=== PATIENT | male | born 1955 | race Caucasian/White ===

== ENCOUNTER 2023-10-15 08:24 | Outpatient (CLI) | payer MEDICARE, OTHER | END 2023-10-15 08:25 | disposition home or self-care (01) | LOC: CSHULT 08:24 | PROVIDERS: ATTEND Family Medicine | DX: Z00.00 Encounter for general adult medical examination without abnormal findings (principal); Z13.6 Encounter for screening for cardiovascular disorders | CPT/HCPCS: 71271; 76706 ==

== ENCOUNTER 2023-10-20 11:57 | Emergency (ER) | payer MEDICARE, OTHER ==
[2023-10-20] MEDS ORDERED: Cyclobenzaprine 10 MG TAB ONE (13:59)
[2023-10-20] MEDS ORDERED: Ketorolac Tromethamine 30 MG/ML VIAL ONE (13:59)
[2023-10-20] MEDS ORDERED: HYDROcodone/Acetaminophen 5/325 mg Tablet ONE (13:59)
== END 2023-10-20 14:02 | disposition home or self-care (01) ==
LOC: CSHERS 11:57
DX: S83.91XA Sprain of unspecified site of right knee, initial encounter (principal); X58.XXXA Exposure to other specified factors, initial encounter
CPT/HCPCS: 96372; J1885

== ENCOUNTER 2023-11-23 08:04 | Outpatient (CLI) | payer MEDICARE, OTHER | END 2023-11-23 08:05 | disposition home or self-care (01) | LOC: CSHMRI 08:04 | PROVIDERS: ATTEND Orthopaedic Surgery | DX: M87.9 Osteonecrosis, unspecified (principal); R93.6 Abnormal findings on diagnostic imaging of limbs | CPT/HCPCS: 72195 ==

== ENCOUNTER 2024-10-15 07:22 | Outpatient (CLI) | payer MEDICARE, OTHER | END 2024-10-15 07:23 | disposition home or self-care (01) | LOC: CSHCT 07:22 | PROVIDERS: ATTEND Family Medicine | DX: Z12.2 Encounter for screening for malignant neoplasm of respiratory organs (principal); Z87.891 Personal history of nicotine dependence; R91.1 Solitary pulmonary nodule | CPT/HCPCS: 71271 ==

== ENCOUNTER 2025-06-15 07:45 | Outpatient (CLI) | payer MEDICARE, OTHER ==
[2025-06-15 09:39] LABS: Estimated GFR - POC 81.0
[2025-06-15] MEDS ORDERED: Iopamidol 370 76% 100 ML VIAL ONE (10:16)
== END 2025-06-15 07:46 | disposition home or self-care (01) ==
LOC: CSHCT 07:45
PROVIDERS: ATTEND Physician Assistant
DX: I73.9 Peripheral vascular disease, unspecified (principal); I77.9 Disorder of arteries and arterioles, unspecified
CPT/HCPCS: 75635; 82565